=== PATIENT | female | born 1955 | race Caucasian/White ===

== ENCOUNTER → 2017-10-24 | Outpatient (CLI) | payer BC, OTHER ==
[2017-10-24 09:07] LABS: HEMATOCRIT 41.1 % (37.0-47.0); HEMOGLOBIN 13.8 gm/dL (12.0-15.0); MCH 29.8 pg (26.0-34.0); MCHC 33.6 g/dL (28.0-37.0); MCV 88.5 fL (80.0-100.0); RBC 4.65 mil/uL (4.20-5.00); RDW 15.3 % (10.5-14.5)
[2017-10-24 09:41] LABS: ALBUMIN 3.8 g/dL (3.4-5.0); CALCIUM 9.6 mg/dL (8.5-10.1); CREATININE 0.6 mg/dL (0.6-1.0); POTASSIUM 3.9 mmol/L (3.5-5.1); TOTAL BILIRUBIN 1.4 mg/dL (<0.1-1.0); TOTAL PROTEIN 7.3 g/dL (6.4-8.2)
== END ==
LOC: CAT 06:33
PROVIDERS: Internal Medicine Cardiovascular Disease
DX: I25.10 Atherosclerotic heart disease of native coronary artery without angina pectoris (principal); J39.8 Other specified diseases of upper respiratory tract

== ENCOUNTER 2017-11-09 06:34 | Observation (INO) | payer BC, OTHER ==
[~2017-11-09] VITALS: Ht 160 cm; Wt 86.6 kg
--- NOTE | ~2017-11-09 | D ---
[facility] [place] [address] DISCHARGE SUMMARY Name: KUNAL MILLER Room #: 201-P [facility] Zari Dobbs#: [id number] Admission: 11/09/17 Attend Phys: Josué Farr MD Discharge: 11/10/17 Date of : 57 Report #: [id number] THIS REPORT FOR: //name// CC: RUFINO Farr DATE OF SERVICE: 11/10/2017 FINAL DIAGNOSES: 1. Atrial fibrillation, status post ablation. 2. Hypertension. HOSPITAL COURSE: Please see the original H and P for full details. The patient presented with recurrent atrial fibrillation, evaluated by Dr. Josué Farr as an outpatient. She had a negative ischemic evaluation and was started on flecainide. However, she continued to have paroxysmal atrial fibrillation despite flecainide therapy. She was admitted electively for an ablation procedure, performed on 11/09/2017. This was performed successfully by Dr. Farr. She has remained stable overnight, telemetry reveals no recurrence of AFib. Her blood pressure is under control. The right groin site has no hematoma. The patient offers no complaints of angina or dyspnea. She is stable for discharge. FINAL DISPOSITION: She will continue metoprolol 25 mg daily, Eliquis 5 mg twice a day, doxycycline, estradiol, Neurontin and lisinopril for blood pressure. She is given a followup appointment with Dr. Farr in several weeks. <ELECTRONICALLY SIGNED> By: David Huff MD 11/10/17 2144 [id number] David Huff MD /nt
--- NOTE | ~2017-11-09 | EKG ---
[address] [address] ELECTROCARDIOGRAM REPORT Name: KUNAL MILLER [id number] Admission: 11/09/17 Attend Phys: Josué Farr MD Discharge: Date of : 57 Report #: [id number] THIS REPORT FOR: //name// [facility] Test Date: 2017-11-09 Test Time: 07:04:43 Pat Name: KUNAL MILLER Department: Room: Gender: F Instructional Coordinator: ABBY : 1955 Requested By: Josué Farr Order Number: [id number] MD: David Huff Measurements Intervals [place] Rate: 55 P: 12 [place]: 149 QRS: -38 QRSD: 95 T: 9 QT: 418 QTc: 400 Interpretive Statements Sinus rhythm Left axis deviation Abnormal R-wave progression, late transition No previous ECG available for comparison Electronically Signed On 11-09-2017 9:16:36 CDT by David Huff [email or web address] <ELECTRONICALLY SIGNED> By: David Huff MD 11/09/17 0916 0704 0704 David Huff MD /MEHUL
--- NOTE | ~2017-11-09 | P ---
[facility] [place] [address] PROCEDURE REPORT Name: KUNAL MILLER Room #: 201-P [facility] Zari Dobbs#: [id number] Admission: 11/09/17 Attend Phys: Josué Farr MD Discharge: 11/10/17 Date of : 57 Report #: [id number] THIS REPORT FOR: //name// CC: RUFINO Farr PREOPERATIVE DIAGNOSIS: Atrial fibrillation. POSTOPERATIVE DIAGNOSIS: Atrial fibrillation. PROCEDURES PERFORMED: 1. AFib ablation, CPT code 49192. 2. 3D mapping, CPT code 40893. 3. Intracardiac echo, CPT code 59565. HISTORY OF PRESENT ILLNESS: The patient is a 62-year-old female with a history of atrial fibrillation, here for an ablation. ANESTHESIA: The patient underwent general anesthesia with no anesthesia-related complications. DESCRIPTION OF PROCEDURE: The patient underwent informed consent. We discussed the details of the procedure including the risks, which include but not limited to bleeding, vascular damage, cardiac perforation as well as stroke or OK. She understood these risks and is willing to proceed. The patient was brought to the EP Laboratory in a fasting and sedated state and prepped and draped in a sterile fashion. I obtained access to the right femoral vein x 3, placing a 9-Moroccan, 8-Moroccan and 7-Moroccan short sheath in the right femoral vein using the modified Seldinger technique and then I placed a decapolar catheter easily in the coronary sinus and an ICE catheter in the right atrium. Intracardiac ultrasound verified that the patient had a left common ostium and right superior and right inferior pulmonary veins. CartoSound was utilized to create a 3D geometry. Next, the patient was systemically heparinized and a transseptal was performed using an SL1 sheath and [place] needle. The transseptal was straight forward. Once in the left atrium, I placed a Lasso catheter into the 4 pulmonary veins and then the cardiac CT was merged with the CartoSound map. Next, the SL1 sheath was exchanged for the cryo sheath and the cryoballoon was placed into the left atrium. The left common pulmonary vein underwent 4 freezes. I performed 2 freezes in the superior branch of the common ostium. The vein remained connected. I then turned my attention to the inferior branch and afterwards the entire common ostium was isolated. I then moved my decapolar catheter into the SVC and performed phrenic nerve pacing and then performed 2 freezes in the right superior and right inferior pulmonary veins with evidence of isolation. All veins were re-interrogated and found to be isolated. As such, the procedure was concluded. [address] [address] PROCEDURE REPORT Name: MEIR MILLERLY Room #: 201-P [facility] Zari Dobbs#: [id number] Admission: 11/09/17 Attend Phys: Jousé Farr MD Discharge: 11/10/17 Date of : 57 Report #: [id number] At baseline, the patient was in sinus rhythm with sinus cycle length of 1010 milliseconds, NC interval 150 milliseconds, QRS duration 80 milliseconds, QT interval 450 milliseconds. Post-ablation, the patient was in sinus rhythm with a sinus cycle length of 970 milliseconds, NC interval 145 milliseconds, QRS duration 80 milliseconds, and QT interval 460 milliseconds. CONCLUSIONS: Successful AFib ablation with isolation of the left common ostium in the right superior and right inferior pulmonary veins. By: [id number] Josué Farr MD /nt
[2017-11-09] MEDS ORDERED: DOXYCYCLINE150 MG PO (06:54)
[2017-11-09] MEDS ORDERED: TOPROL XL25 MG PO (06:54)
[2017-11-09] MEDS ORDERED: ELIQUIS5 M1 PO (06:54)
[2017-11-09] MEDS ORDERED: FLECAINIDE ACET50 M1 PO (06:55)
[2017-11-09] MEDS ORDERED: GABAPENTIN 100100 MG PO (06:55)
[2017-11-09] MEDS ORDERED: ESTRADIOL 1 MG T1 M1 PO (06:55)
[2017-11-09] MEDS ORDERED: PAXIL40 MG PO (06:56)
[2017-11-09] MEDS ORDERED: PROVERA10 MG PO (06:56)
[2017-11-09] MEDS ORDERED: AMBIEN 5 MG TABL5 M1 PO (06:57)
[2017-11-09] MEDS ORDERED: EFFEXOR XR75 MG PO (06:57)
[2017-11-09] MEDS ORDERED: LISINOPRIL10 MG PO (06:57)
[2017-11-09 07:04] VITALS: BP 141/80
[2017-11-09 07:45] LABS: ABSOLUTE NEUTROPHILS 3.2 thou/uL (1.4-8.2); EOSINOPHILS 2.7 % (0.0-3.0); HEMATOCRIT 40.9 % (37.0-47.0); HEMOGLOBIN 13.6 gm/dL (12.0-15.0); LYMPHOCYTES 20.3 % (24.0-44.0); MCH 29.5 pg (26.0-34.0); MCHC 33.2 g/dL (28.0-37.0); MCV 88.7 fL (80.0-100.0); MONOCYTES 10.7 % (1.0-8.0); PLATELET COUNT 271 thou/uL (150-400); POLYS 65.3 % (36.0-66.0); RBC 4.61 mil/uL (4.20-5.00); RDW 14.6 % (10.5-14.5)
[2017-11-09 07:55] LABS: CALCIUM 9.1 mg/dL (8.5-10.1); CREATININE 0.7 mg/dL (0.6-1.0); POTASSIUM 3.5 mmol/L (3.5-5.1)
[2017-11-09 07:58] LABS: APTT 28.2 Seconds (24.5-32.8); PROTIME 10.4 Seconds (9.3-11.4)
[2017-11-09 08:02] LABS: ALBUMIN 3.4 g/dL (3.4-5.0); TOTAL BILIRUBIN 0.8 mg/dL (<0.1-1.0); TOTAL PROTEIN 6.7 g/dL (6.4-8.2)
[2017-11-09 16:00] VITALS: BP 125/62
[2017-11-09 20:04] VITALS: BP 122/71
[2017-11-10 05:04] VITALS: BP 117/70
[2017-11-10 07:50] VITALS: BP 121/65
[2017-11-10 10:32] VITALS: BP 121/65
== END 2017-11-10 11:09 | disposition home or self-care (01) ==
LOC: CATH 06:34 → 2N 12:42 → CATH 14:54 → 2N 11-10 11:09
PROVIDERS: Internal Medicine Cardiovascular Disease
DX: I48.0 Paroxysmal atrial fibrillation (principal); I10 Essential (primary) hypertension; R06.02 Shortness of breath
CPT/HCPCS: 62110; 62900; 70005